=== PATIENT | female | born 1990 | race Caucasian/White ===

== ENCOUNTER 2019-05-25 10:59 | Inpatient (IN) | payer MEDICAID ==
[~2019-05-25] VITALS: Ht 142.2 cm; Wt 62.5 kg
[~2019-05-25 10:59] MED LIST: PNV11TAB PO
[2019-05-25 11:47] VITALS: Ht 142.2 cm; Wt 62.5 kg
[2019-05-25 11:48] VITALS: BP 164/96; PULSE 79; RESP 19
[2019-05-25] MEDS ORDERED: LABETALOL HCL 20MG INJ IV PRN ×2 (13:30)
[2019-05-25] MEDS ORDERED: ACETAMINOPHEN 325 MG TAB PO PRN (13:30)
[2019-05-25] MEDS ORDERED: MAGNESIUM SULFATE 4 GM/100 ML 100 ML IV ONE (13:30)
[2019-05-25] MEDS ORDERED: CA GLUCONATE (GM) 10% 10ML INJ IV PRN (13:30)
[2019-05-25] MEDS ORDERED: hydrALAzine 20 MG INJ IV PRN (13:30)
[2019-05-25] MEDS: LACTATED RINGER'S 1,000 ML IV SCH (13:54)
[2019-05-25] MEDS: MAGNESIUM SULFATE 20 GM/500 ML 500 ML IV SCH (14:25)
[2019-05-25] MEDS: BETAMET NA PHOS/AC(6 MG/ML) 2 ML INJ SYG IM SCH (14:27)
[2019-05-26] MEDS: LACTATED RINGER'S 1,000 ML IV SCH ×3 (01:11→19:44)
[2019-05-26] MEDS: MAGNESIUM SULFATE 20 GM/500 ML 500 ML IV SCH (01:15)
--- NOTE | 2019-05-26 07:08 | HP ---
Date/Time of Note Date/Time of Note DATE: 05/26/19 TIME: 07:06 OB - History Hx of Present Free Text/Dictation 32 weeks sent from clinic with elevated BP. The highest BP was 160/107 . Pt. started on Magnesium and given beta methasone and 24 hr urine collection : 1 Para: 0 Care: Good Care Ultrasounds: Normal mid trimester US Obstetrical Complications: None Medical Complications: None Past Family/Social History * Past Medical, Surgical, Family and Obstetric Histories reviewed from chart. OB Admission Exam Vital Signs Vital Signs Vital Signs Date Temp Pulse Resp B/P (MAP) Pulse Ox O2 O2 Flow FiO2 Time Delivery Rate 05/25/19 98.8 79 19 164/96 Room Air 11:48 (118) Physical Exam HEENT: WNL Heart: Rhythm Normal Lungs: Clear, Equal Abdomen: WNL Extremities: Normal Reflexes: Normal Cervical Dilatation: None Effacement: 0% Station: Ballotable Membranes: Intact Heart Rate: 130's Accelerations: Accelerations Present Decelerations: No Decelerations Contractions on Admission: None Last 72 hours Lab Results CBC & BMP 05/25/19 11:30 Liver Function Test 05/25/19 11:30 Alanine Aminotransferase (ALT/SGPT) 21 Albumin 3.2 L Alkaline Phosphatase 110 Aspartate Amino Transf (AST/SGOT) 25 Direct Bilirubin 0.00 Total Protein 6.3 Magnesium Level Test 05/25/19 17:28 05/26/19 00:24 05/26/19 05:27 Magnesium Level 5.0 H 6.4 *H 6.5 *H OB Assessment/Plan Reason for admission: other (severe PIH, due to high BP, will start magnesium, beta methasone) ROMÁN CHAMBERLAIN MD May 26, 2019 07:08
[2019-05-26] MEDS: PRENATAL VITAMIN PO SCH (09:36)
[2019-05-26] MEDS: BETAMET NA PHOS/AC(6 MG/ML) 2 ML INJ SYG IM SCH (14:47)
[2019-05-27] MEDS: LACTATED RINGER'S 1,000 ML IV SCH ×3 (04:20→23:23)
[2019-05-27] MEDS: PRENATAL VITAMIN PO SCH (08:22)
[2019-05-27] MEDS ORDERED: DOCUSATE SODIUM 100 MG CAP PO SCH (10:30)
[2019-05-27] MEDS ORDERED: FERROUS SULFATE (EC) 325 MG TAB PO SCH (10:30)
--- NOTE | 2019-05-27 11:54 | CONS ---
DATE OF ADMISSION: 05/25/2019 DATE OF CONSULTATION: 05/26/2019 IMPRESSION: Intrauterine at 32 weeks with severe preeclampsia given 3+ protein and initial ly severe blood pressures. Labs are normal. heart tone is category 2, but it is most likely s econdary to magnesium sulfate. She is asymptomatic. RECOMMENDATIONS: Delivery at 34 weeks', unless there is thrombocytopenia with platelets of less than 100,000 or any neurologic or GI symptoms or nonreassuring heart tone. Otherwise, 34 weeks. Dictated By: ADRIAN NEELY MD ST/NTS Conf#: [id number] DID#: [id number] CC: ROMÁN CHAMBERLAIN MD;*EndCC*
[2019-05-27] MEDS: LABETALOL HCL 20MG INJ IV PRN ×2 (14:44→15:25)
[2019-05-27] MEDS ORDERED: MAGNESIUM SULFATE 4 GM/100 ML 100 ML ONE (15:28)
[2019-05-27] MEDS ORDERED: CA GLUCONATE (GM) 10% 10ML INJ IV PRN (15:30)
[2019-05-27] MEDS ORDERED: MAGNESIUM SULFATE 4 GM/100 ML 100 ML IV SCH (15:30)
[2019-05-27] MEDS ORDERED: MAGNESIUM SULFATE 4 GM/100 ML 100 ML IVPB ONE (16:00)
[2019-05-27] MEDS: MAGNESIUM SULFATE 20 GM/500 ML 500 ML IV SCH (16:04)
[2019-05-28] VITALS (13 sets, daily range): BP systolic 140–161; BP diastolic 83–97; PULSE 82–93; RESP 17–19
[2019-05-28] MEDS: MAGNESIUM SULFATE 20 GM/500 ML 500 ML IV SCH ×4 (01:29→20:51)
[2019-05-28] MEDS ORDERED: DEXTROSE 5%-LR 1,000 ML IV SCH (05:00)
[2019-05-28] MEDS ORDERED: CEFAZOLIN 2 GM/50 ML (PMX) 50 ML IVPB ONE (08:08)
--- NOTE | 2019-05-28 08:47 | PREAC ---
Date/Time of Note Date/Time of Note DATE: 05/28/19 TIME: 08:46 Anesthesia Eval and Record Evaluation Time Pre-Procedure Interview DATE: 05/28/19 TIME: 08:46 Age 29 Sex female NPO: 8 hrs Preoperative diagnosis PreEclampsia Planned procedure Past Medical History Past Medical History: Includes : : (1), Para: (0), Gestational age: (32), PIH Surgery & Anesthesia Issues No known issue Meds Anticoagulation: No Beta Louisa within 24 hr: No Reason Beta Louisa not given: Pt. not on B-Louisa Reported Medications [id number] ( ) 1 Each Tablet, 1 TAB PO DAILY, TAB 05/25/19 Current Medications Prenat Multivit/ Wood/Iron/Folic Ac () 1 tab DAILY PO Last a dministered on 05/27/19at 08:22; Admin Dose 1 TAB; Start 05/26/19 at 09:00 Acetaminophen (Tylenol Tab) 650 mg Q4H PRN PO .PAIN OR TEMP Last administered on 05/27/19at 14:22; Admin Dose 650 MG; Start 05/25/19 at 13:30 Lactated Ringer's 1,000 ml @ 75 mls/hr [id number] IV Last administered on 05/27/19at 23:23; Admin Dose 75 MLS/HR; Start 05/25/19 at 13:15 Calcium Gluconate (Ca Gluc) 1 gm ONCE PRN IV FOR MAGNESIUM TOXICITY; Start 05/25/19 at 13:30 Labetalol HCl (Labetalol) 40 mg ONCE PRN IV ELEVATED BLOOD PRESSURE Last administered on 05/28/19at 08:15; Admin Dose 40 MG; Start 05/25/19 at 13:30 Labetalol HCl (Labetalol) 80 mg ONCE PRN IV ELEVATED BLOOD PRESSURE Last administered on 05/28/19at 08:43; Admin Dose 80 MG; Start 05/25/19 at 13:30 Hydralazine HCl (Apresoline) 10 mg ONCE PRN IV ELEVATED BLOOD PRESSURE; Start 05/25/19 at 13:30 Ferrous Sulfate (Ferrous Sulfate (Ec)) 325 mg DAILY PO Last administered on 05/27/19at 13:24; Admin Dose 325 MG; Start 05/27/19 at 10:30 Docusate Sodium (Colace) 100 mg DAILY PO Last administered on 05/27/19at 13:24; Admin Dose 100 MG; Start 05/27/19 at 10:30 Magnesium Sulfate 500 ml @ 50 mls/hr Q10H IV Last administered on 05/28/19at 01:29; Admin Dose 50 MLS/HR; Start 05/27/19 at 15:24 Dextrose/Lactated Ringer's 1,000 ml @ 75 mls/hr [id number] IV Last administered on 05/28/19at 04:41; Admin Dose 75 MLS/HR; Start 05/28/19 at 05:00 Meds reviewed: Yes Allergies Coded Allergies: No Known Allergy (Unverified , 05/25/19) Allergies Reviewed: Yes Labs/Studies Labs Reviewed: Reviewed by anesthesiologist Result Diagram: 05/25/19 1130 05/25/19 1130 test: Positive Studies: ECG (n/a), CXR (n/a) Pre-procedure Exam Last vitals Vital Signs Date Temp Pulse Resp B/P (MAP) Pulse Ox O2 O2 Flow FiO2 Time Delivery Rate 05/27/19 98.9 15:03 05/25/19 79 19 164/96 Room Air 11:48 (118) Airway: Adequate mouth opening, Adequate thyromental dist Mallampati: Mallampati II Teeth: Normal Lung: Normal Heart: Normal ASA Physical Status ASA physical status: 2 Emergency: E Planned Anesthetic Neuraxial: Spinal Planned Pain Management Sub-arachniod narcotics, Parenteral pain med Pre-operative Attestations Prior to commencing anesthesia and surgery, the patient was re-evaluated, there was verification of: *The patient's identity *The results of appropriate recent lab work and preoperative vital signs *The above evaluation not changing prior to induction *Anesthetic plan, risk benefits, alternative and complications discussed with patient/family; questions answered; patient/family understands, accepts and wis hes to proceed. NOE CUMMINGS MD May 28, 2019 08:47
[2019-05-28] MEDS ORDERED: DEXAMETHASONE 4 MG/ML 1 ML INJ ONE (08:56)
[2019-05-28] MEDS ORDERED: ONDANSETRON 4 MG INJ ONE (08:56)
[2019-05-28] MEDS ORDERED: METOCLOPRAMIDE 10 MG INJ ONE (08:56)
[2019-05-28] MEDS ORDERED: OXYTOCIN 10 UNIT INJ ONE (08:56)
[2019-05-28] MEDS ORDERED: morphine SULFATE/PF (10 MG/10 ML) INJ ONE (08:56)
[2019-05-28] MEDS ORDERED: PHENYLephrine (100 MCG/ML) 10ML SYG ONE (08:56)
[2019-05-28] MEDS ORDERED: KETOROLAC 30 MG INJ ONE (08:56)
[2019-05-28] MEDS ORDERED: ONDANSETRON 4 MG INJ IV ONE (09:00)
[2019-05-28] MEDS ORDERED: CITRIC ACID/NA CITRATE 30 ML CUP PO ONE (09:00)
--- NOTE | 2019-05-28 09:09 | QN ---
Documentation Comment 32 weeks with increasing BP of over 160/108 given labetolol and restarted magnesium. Pt. is now having headaches even without the magnesium and the diagnosis of severe Pre-eclampsia made. Explained to pt regarding the risk of waiting including seizure and stroke versus delivery of the fetus at this time and patient agrees to proceed with delivery. ROMÁN CHAMBERLAIN MD May 28, 2019 09:09
[2019-05-28] MEDS ORDERED: MEPERIDINE 100 MG INJ ONE (09:31)
--- NOTE | 2019-05-28 09:50 | PAC ---
Date/Time of Note Date/Time of Note DATE: 05/28/19 TIME: 09:49 Post-Anesthesia Notes Post-Anesthesia Note Last documented vital signs Vital Signs Date Temp Pulse Resp B/P (MAP) Pulse Ox O2 O2 Flow FiO2 Time Delivery Rate 05/28/19 98.9 09:53 05/25/19 79 19 164/96 Room Air 11:48 (118) Activity: WNL Respiratory function: WNL Cardiovascular function: WNL Mental status: Baseline Pain reasonably controlled: Yes Hydration appropriate: Yes Nausea/Vomiting absent: Yes NOE CUMMINGS MD May 28, 2019 09:50
--- NOTE | 2019-05-28 09:54 | OPR ---
Operative Report Planned Procedure Procedure date May 28, 2019 Procedure(s) primary c/s Performed by see signature line Paper Spooler: KIM PITTMAN MD Pre-procedure diagnosis severe pre eclampsia and tracing category 2 [id number] Anesthesia Type: Hvakm0x spinal Post-Procedure Post-procedure diagnosis severe PIH and para tubal cysts Findings Live Baby [], Apgars [] and [], weight [], position [], [] presentation []cord. Estimated Blood Loss: 600 - 700 mls Specimen(s) placenta and paratubal cysts Grafts/Implant(s) none Complication(s) none Pt Condition post procedure: stable Disposition: PACU Procedure Description Under satisfactory spinal ] anesthesia, the patient was prepped and draped and placed in a supine position, tilted to the left. Pfannenstiel incision was made, carried through the subcutaneous tissue. Bleeders brought under control with electrocautery. Fascia incised to the length of the incision. Rectus muscles from the fascia, divided midline. Peritoneum exposed, entered through a transverse incision. Exploration of abdomen revealed gravid uterus. Bladder flap was developed. Transverse incision was made in the lower segment of the uterus. Amniotic sac ruptured. clear [] amniotic fluid noted. [] Nasal oropharyngeal suction was performed. The baby was handed to the team for immediate attention. The placenta was delivered manually intact. Uterine cavity was cleaned with wet sponge and drainage established. Uterus closed in 2 layers using [one monocryl] in continuous fashion. The right para tubal cysts were dissected and removed. Peritoneal cavity irrigated with warm saline. Sponge, needle and instrument count reported to be correct. Abdominal peritoneum closed with one monocryl[] continuously. Rectus muscle approximated with []. Fascia closed with [one monocryl ], and skin closed with maddy. Estimated blood loss 700[]mL. ROMÁN CHAMBERLAIN MD May 28, 2019 09:54
[2019-05-28] MEDS ORDERED: ACETAMINOPHEN 500 MG TAB PO PRN (10:00)
[2019-05-28] MEDS ORDERED: ONDANSETRON 4 MG INJ IV PRN (10:00)
[2019-05-28] MEDS ORDERED: NALBUPHINE HCL (10 MG/1 ML) INJ IV PRN (10:00)
[2019-05-28] MEDS ORDERED: HYDROCODONE/APAP (5/325) TAB PO PRN (10:00)
[2019-05-28] MEDS ORDERED: HYDROmorphONE 0.5 MG/0.5 ML SYG IV PRN ×2 (10:00)
[2019-05-28] MEDS ORDERED: DIPHENHYDRAMINE 50 MG INJ IV PRN (10:00)
[2019-05-28] MEDS ORDERED: KETOROLAC 30 MG INJ IV PRN (10:00)
[2019-05-28] MEDS ORDERED: NALOXONE (0.4 MG/ML) INJ IV PRN (10:00)
[2019-05-28] MEDS ORDERED: morphine 2 MG INJ IV PRN ×2 (10:00)
[2019-05-28] MEDS ORDERED: OXYTOCIN 30 UNITS/LR 500 ML IV SCH (13:01)
[2019-05-28] MEDS ORDERED: LACTATED RINGER'S 1,000 ML IV SCH (13:01)
[2019-05-28] MEDS ORDERED: NACL 0.9% 3 ML SYG IV SCH (13:30)
[2019-05-28] MEDS ORDERED: METHYLERGONOVINE 0.2 MG INJ IM PRN (13:30)
[2019-05-28] MEDS ORDERED: MISOPROSTOL 200 MCG TAB PR PRN (13:30)
[2019-05-28] MEDS ORDERED: LANOLIN HPA 1 PKT TOP PRN (13:30)
[2019-05-28] MEDS ORDERED: NA PHOSPHATE/BIPHOS 133 ML ENEMA PR PRN (13:30)
[2019-05-28] MEDS ORDERED: OXYTOCIN 30 UNITS/LR 500 ML IV PRN (13:30)
[2019-05-28] MEDS ORDERED: CARBOPROST 250 MCG INJ IM PRN (13:30)
[2019-05-28] MEDS: IBUPROFEN 800 MG TAB PO SCH ×2 (14:00→21:56)
[2019-05-28] MEDS: OXYTOCIN 30 UNITS/LR 500 ML IV SCH ×3 (14:38→21:59)
[2019-05-28] MEDS ORDERED: LABETALOL 100 MG TAB PO SCH (19:00)
[2019-05-29] VITALS (11 sets, daily range): BP systolic 141–158; BP diastolic 83–92; PULSE 81–101; RESP 16–20
[2019-05-29] MEDS: OXYTOCIN 30 UNITS/LR 500 ML IV SCH ×2 (04:30→08:30)
[2019-05-29] MEDS: IBUPROFEN 800 MG TAB PO SCH ×3 (06:12→22:02)
[2019-05-29] MEDS: LABETALOL 200 MG TAB PO SCH ×2 (08:32→20:59)
--- NOTE | 2019-05-29 09:27 | QN ---
Documentation Comment PT. W/O COMPLAINTS BP ELEVATED LAST NIGHT. STARTED ON LABETALOL 100MG BID OOB TODAY D/C MAGNESIUM ROMÁN CHAMBERLAIN MD May 29, 2019 09:27
[2019-05-30 03:30] VITALS: BP 136/73; PULSE 95; RESP 19
[2019-05-30] MEDS: IBUPROFEN 800 MG TAB PO SCH ×3 (05:36→21:32)
[2019-05-30 08:00] VITALS: BP 160/77; PULSE 104; RESP 18
[2019-05-30 09:10] VITALS: BP 145/89; PULSE 105; RESP 18
[2019-05-30] MEDS: LABETALOL 200 MG TAB PO SCH ×2 (09:21→21:32)
[2019-05-30 12:00] VITALS: BP 129/85; PULSE 98
--- NOTE | 2019-05-30 12:40 | DS ---
Date/Time of Note Date/Time of Note DATE: 05/30/19 TIME: 12:38 Discharge Summary Admission/Discharge Info Admit Date/Time May 25, 2019 at 12:45 Discharge Date/Time Discharge Diagnosis 32 weeks with severe pre eclampsia Patient Condition: Stable Hospital Course unremarkable Home Meds Reported Medications [id number] ( 19) 1 Each Tablet, 1 TAB PO DAILY, TAB 05/25/19 Primary Care Provider Care Physician No Primary ROMÁN CHAMBERLAIN MD May 30, 2019 12:40
[2019-05-30 16:00] VITALS: BP 136/86; PULSE 104; RESP 18
[2019-05-30 19:58] VITALS: BP 140/85; PULSE 99; RESP 18
[2019-05-30] MEDS: HYDROCODONE/APAP (5/325) TAB PO PRN (19:58)
[2019-05-31] VITALS (11 sets, daily range): BP systolic 126–176; BP diastolic 78–102; PULSE 88–114; RESP 17–21
[2019-05-31] MEDS: HYDROCODONE/APAP (5/325) TAB PO PRN (03:51)
[2019-05-31] MEDS: IBUPROFEN 800 MG TAB PO SCH ×3 (05:56→22:04)
[2019-05-31] MEDS ORDERED: DIPHTH/TET/ACEL PERTUSS (ADULT) 0.5 ML VIAL IM* ONE (09:00)
[2019-05-31] MEDS ORDERED: MEASLES,MUMPS,RUBELLA VACCINE INJ SC* ONE (09:00)
[2019-05-31] MEDS: LABETALOL 200 MG TAB PO SCH ×4 (09:59→22:04)
[2019-05-31] MEDS ORDERED: NIFEdipine (XL) 30 MG TAB PO ONE (17:00)
[2019-05-31] MEDS ORDERED: LABETALOL HCL 20MG INJ IV ONE ×2 (18:00→19:00)
[2019-05-31] MEDS ORDERED: MAGNESIUM SULFATE 4 GM/100 ML 100 ML IVPB ONE (19:00)
[2019-05-31] MEDS: LACTATED RINGER'S 1,000 ML IV SCH (19:08)
[2019-05-31] MEDS: MAGNESIUM SULFATE 20 GM/500 ML 500 ML IV SCH (20:00)
[2019-05-31] MEDS ORDERED: CALCIUM GLUCONATE 10% 1 GM in DEXTROSE 5% 100 ML IVPB ONE (21:00)
[2019-06-01] VITALS (10 sets, daily range): BP systolic 104–149; BP diastolic 54–94; PULSE 95–105; RESP 17–20
[2019-06-01] MEDS: IBUPROFEN 800 MG TAB PO SCH ×2 (05:11→14:00)
[2019-06-01] MEDS: MAGNESIUM SULFATE 20 GM/500 ML 500 ML IV SCH (05:21)
[2019-06-01] MEDS: LABETALOL 200 MG TAB PO SCH (06:00)
--- NOTE | 2019-06-01 08:18 | QN ---
Documentation Comment Pt. had elevated BP yesterday and the covering doctor started the Pt. on L obatelol and procardia and on magnesium BP today is 125/82 will stop magnesium and send home on loabtelol 100 mg BID for 7 days ROMÁN CHAMBERLAIN MD Jun 01, 2019 08:18
[2019-06-01] MEDS: LACTATED RINGER'S 1,000 ML IV SCH (08:36)
[2019-06-01] MEDS ORDERED: NIFEdipine (XL) 30 MG TAB PO SCH (09:00)
[2019-06-01] MEDS ORDERED: LABETALOL 100 MG TAB PO ONE (09:00)
--- NOTE | 2019-06-01 13:52 | CONS ---
Assessment/Plan Assessment/Plan Hospital Course (Demo Recall) 29-year-old female who is status post delivery on 05/28/2019 via with underlying PIH, with reasonably well-controlled blood pressure on antihypertensives and magnesium. 1. PIH. Agree with the labetalol 100 mg twice daily for outpatient management. 2. Obesity. BMI 30 kg/m. Advised weight reduction. The patient is a 36-year-old relatively healthy female with no other comorbidities other than obesity and underlying PIH with reasonably well controlled blood pressure on her current regimen. The patient may be discharged home on labetalol 100 mg p.o. twice daily with adequate outpatient follow-up. Thank you for the consult. Please call for any questions. The patient was seen in collaboration with Dr. Mejía. Consultation Date/Type/Reason Admit Date/Time May 25, 2019 at 12:45 Date of Consultation: Jun 01, 2019 Type of Consult Medical Reason for Consultation Hypertension management. Requesting Provider: ROMÁN CHAMBERLAIN MD Date/Time of Note DATE: 06/01/19 TIME: 13:51 Hx of Present Illness This is a 29-year-old female with PIH, who had a on 05/28/2019. The patient's blood pressure was controlled with nifedipine and labetalol. The patient was also maintained on magnesium drip at some point for blood pressure control. The patient was being gradually weaned off from antihypertensives. Me anwhile, the patient had a blood pressure reading of 184/101 on 05/31/2019 in the evening that necessitated giving 2 doses of IV labetalol. The patient denied using any antihypertensives during the . The patient denied any family history of hypertension. At the time of initial interview, the patient denied any headache, chest pain, palpitations, epigastric pain, nausea, or vomiting. She denied any pain. The patient endorsed bilateral lower extremity swelling that is getting better. Hospitalist consult was obtained on 06/01/2019 for evaluating the patient prior to discharge. Constitutional: no complaints Eyes: no complaints ENT: no complaints Respiratory: no complaints Cardiovascular: no complaints Gastrointestinal: no complaints Genitourinary: discharge Musculoskeletal: no complaints Skin: no complaints Neurologic: no complaints Endocrine: no complaints Lymphatic: no complaints Psychological: no complaints Immunologic: no complaints Past Medical History Medical History: no pertinent history Home Meds Reported Medications [id number] ( 19) 1 Each Tablet, 1 TAB PO DAILY, TAB 05/25/19 Medications Current Medications Acetaminophen/ Hydrocodone Bitart ([place] (5/325)) 2 tab Q4H PRN PO .PAIN 7-10 Last administered on 05/31/19at 03:51; Admin Dose 2 TAB; Start 05/28/19 at 13:30 Ibuprofen (Motrin) 800 mg Q8 PO Last administered on 06/01/19at 05:11; Admin Dose 800 MG; Start 05/28/19 at 14:00 Simethicone (Mylicon) 160 mg Q8H PRN PO .GAS Last administered on 05/30/19at 19:57; Admin Dose 160 MG; Start 05/28/19 at 13:30 Sodium Biphosphate/ Sodium Phosphate (Fleet Enema) 133 ml DAILY PRN AL .CONSTIPATION; Start 05/28/19 at 13:30 Lanolin (Lanolin Hpa) 1 applic BEDSIDE MEDICATION PRN TOP .NIPPLES; Start 05/28/19 at 13:30 Oxytocin/Lactated Ringer's 500 ml @ 0 mls/hr ONCE PRN IV .VAGINAL BLEEDING; Start 05/28/19 at 13:30 Methylergonovine Maleate (Methergine) 0.2 mg ONCE PRN IM .VAGINAL BLEEDING; Start 05/28/19 at 13:30 Carboprost Tromethamine (Hemabate) 250 mcg ONCE PRN IM .VAGINAL BLEEDING; Start 05/28/19 at 13:30 Misoprostol (Cytotec) 1,000 mcg ONCE PRN AL .VAGINAL BLEEDING; Start 05/28/19 at 13:30 Allergies: Coded Allergies: No Known Allergy (Unverified , 05/25/19) Family History Significant Family History: no pertinent family hx Social History The patient lives at home with family. Alcohol Use: none Smoking Status: Never smoker Drug Use: none Exam/Review of Systems Exam Vitals Vital Signs Date Temp Pulse Resp B/P (MAP) Pulse Ox O2 O2 Flow FiO2 Time Delivery Rate 06/01/19 98.3 20 147/94 11:31 (111) 06/01/19 95 Room Air 08:00 05/29/19 97 08:10 Intake and Output 05/31/19 05/31/19 06/01/19 1515:00 23:00 07:00 IntakeIntake Total 375 ml 875 ml OutputOutput Total 1300 ml 1200 ml BalanceBalance -925 ml -325 ml Exam General: Adequately build 29 year-old female lying in bed in no apparent distress. HEENT: Normocephalic, atraumatic. Eyes: Anicteric sclerae, conjunctivae clear. ENT: Nasal septum midline, oral mucosa moist. Neck supple, no JVD noticed. Respiratory: Bilaterally clear breath sounds. No use of accessory muscles of respiration. No adventitious breath sounds. Cardiovascular: S1, S2 heard. Regular rate and rhythm. Abdomen: Soft. Linea nigra. Bowel sounds positive in all 4 quadrants. Genitourinary: Deferred. Extremities: No cyanosis, no clubbing. Bilateral lower extremity 2+ pitting edema. Peripheral pulses palpable. Neurologic: Cranial nerves II through XII grossly intact. The patient is awake, alert, and oriented. Skin: Normal skin turgor. No skin rashes. Results Result Diagram: 05/29/19 06 Results 24hrs Laboratory Tests Test 06/01/19 00:29 06/01/19 06:33 Magnesium Level 5.2 *H 6.2 *H Medications Medication Current Medications Acetaminophen/ Hydrocodone Bitart ([place] (5/325)) 2 tab Q4H PRN PO .PAIN 7-10 Last administered on 05/31/19at 03:51; Admin Dose 2 TAB; Start 05/28/19 at 13:30 Ibuprofen (Motrin) 800 mg Q8 PO Last administered on 06/01/19at 05:11; Admin Dose 800 MG; Start 05/28/19 at 14:00 Simethicone (Mylicon) 160 mg Q8H PRN PO .GAS Last administered on 05/30/19at 19:57; Admin Dose 160 MG; Start 05/28/19 at 13:30 Sodium Biphosphate/ Sodium Phosphate (Fleet Enema) 133 ml DAILY PRN AL .CONSTIPATION; Start 05/28/19 at 13:30 Lanolin (Lanolin Hpa) 1 applic BEDSIDE MEDICATION PRN TOP .NIPPLES; Start 05/28/19 at 13:30 Oxytocin/Lactated Ringer's 500 ml @ 0 mls/hr ONCE PRN IV .VAGINAL BLEEDING; Start 05/28/19 at 13:30 Methylergonovine Maleate (Methergine) 0.2 mg ONCE PRN IM .VAGINAL BLEEDING; Start 05/28/19 at 13:30 Carboprost Tromethamine (Hemabate) 250 mcg ONCE PRN IM .VAGINAL BLEEDING; Start 05/28/19 at 13:30 Misoprostol (Cytotec) 1,000 mcg ONCE PRN AL .VAGINAL BLEEDING; Start 05/28/19 at 13:30 LEW CHAN NP Jun 01, 2019 13:52
--- NOTE | 2019-06-02 17:33 | DELSUM ---
Delivery Summary A-C Datetime Report Generated by CPN: 06/02/2019 17:33 DELIVERY PERSONNEL Family Specialist: Camilla, Kenisha MATERNAL INFORMATION Delivery Anesthesia: Spinal Medications in Delivery: pitocin Delivery QBL (ml): 700 Placenta Cultured: Yes Maternal Complications: Other RN Comments: high b/p w , fingers swollen, beta given 05/25/19 and 05/26/19, 24hr urine results confirm PIH LABOR SUMMARY EDC: 07/20/2019 00:00 No. Babies in Womb: 1 Attempted: No Labor Anesthesia: None LABOR INFORMATION Reason for Induction: Not Applicable Group B Beta Strep: Not Done Antibiotics # of Doses: 1 Antibiotics Time of Last Dose: 05/28/2019 09:00 Steroids Given: Full Course Reason Steroids Not Administered: Not Applicable MEMBRANES Membranes Rupture Method: Artificial Rupture of Membranes: 05/28/2019 09:30 Length of Rupture (hr): 0.00 Amniotic Fluid Color: Clear Amniotic Fluid Amount: Moderate Amniotic Fluid Odor: None STAGES OF LABOR Stage 3 hr: 0 Stage 3 min: 1 CSECTION DELIVERY Primary Indication: Other Other Primary Indication: SEVERE PIH CSection Urgency: Elective CSection Incidence: Primary Labor: No Labor Elective: Elective CSection Incision: N/A BABY A INFORMATION Delivery Date/Time: 05/28/2019 09:30 Method of Delivery: Born in Route : No : N/A Forceps: N/A Vacuum Extraction: N/A Shoulder Dystocia : N/A SHOULDER DYSTOCIA BABY A Infant Delivery Date/Time: 05/28/2019 09:30 PRESENTATION/POSITION BABY A Presentation: Cephalic Cephalic Presentation: Vertex Vertex Position: Left Occipital Anterior Breech Presentation: N/A PLACENTA INFORMATION BABY A Placenta Delivery Time : 05/28/2019 09:31 Placenta Method of Delivery: Manual Removal Placenta Status: Delivered SCORES BABY A Heart Rate 1 min: >100 bpm Resp Effort 1 min: Slow, Irregular Reflex Irritability 1 min: Grimace Muscle Tone 1 min: Active Motion Color 1 min: Body [place], Extremit Blue Resuscitation Effort 1 min: Tactile Stimulation; Oxygen SCORE 1 MIN: 7 Heart Rate 5 min: >100 bpm Resp Effort 5 min: Slow, Irregular Reflex Irritability 5 min: Grimace Muscle Tone 5 min: Active Motion Color 5 min: Body [place], Extremit Blue Resuscitation Effort 5 min: Tactile Stimulation; Oxygen SCORE 5 MIN: 7 INFANT INFORMATION BABY A Gestational Age at Delivery: 32.2 Gestational Status: - <34 Weeks Infant Outcome : Liveborn, with signs of life Infant Condition : Stable Sex: Male IDENTIFICATION/MEDS BABY A ID Band Number: [id number] ID Band Location: Right Leg; Left Arm Sensor Applied: No Vitamin K Given : Not Given Erythromycin Given: Not Given WEIGHT/LENGTH BABY A Infant Birthweight (gm): 1460 Infant Weight (lb): 3 Weight (oz): 3 Length (in): 15.00 Length (cm): 38.10 CORD INFORMATION BABY A No. Cord Vessels: 3 Nuchal Cord : N/A Cord Blood Taken: Yes Suction: Mouth; Nose ASSESSMENT BABY A Complications: Other Complications- Other: high b/p w , on magnesium and labatalol, got beta 05/25 and BABY IN NICU Physical Findings at Delivery: Other Physical Findings- Other: BABY IN NICU Respirations: Appears Normal Pipelines Laborer/ALS Called : Yes Infant Care By: GUSTAVO JANG Transferred To: NICU
== END 2019-06-01 17:30 | disposition home or self-care (01) | DRG 788 ==
LOC: L-D 10:59 → OBT 10:59 → L-D 12:45 → PP1 05-28 12:35
PROVIDERS: ADMIT Obstetrics & Gynecology; ATTEND Obstetrics & Gynecology
PROC: 10D00Z1 Extraction of Products of Conception, Low, Open Approach (ICD-10-PCS; principal; 2019-05-28 08:30)
DX: O60.13X0 Preterm labor second trimester with preterm delivery third trimester, not applicable or unspecified (principal); O99.214 Obesity complicating childbirth; O14.14 Severe pre-eclampsia complicating childbirth; O76 Abnormality in fetal heart rate and rhythm complicating labor and delivery; Z3A.34 34 weeks gestation of pregnancy; Z37.0 Single live birth
CPT/HCPCS: 36415; 76815; 76818; 80053; 81001; 82575; 83735; 84156; 84560; 85025; 85384; 85610; 85730; 86592; 86900; 86901; 88304; 88307; 99464; G0463; J0610; J0690; J0702; J1100; J1885; J2175; J2274; J2370; J2405; J2590; J2765; J3475; J7120; J7121